=== PATIENT | female | born 1960 | race Caucasian/White ===

== ENCOUNTER 2024-08-10 18:51 | Emergency (ER) | payer MEDICARE ==
[~2024-08-10] VITALS: Ht 149.9 cm; Wt 77.1 kg
[2024-08-10 19:25] VITALS: BP_SYST 137; PULSE 101; RESP 18; TEMP 98.1; O2SAT 94
[2024-08-10 20:26] LABS: BASOPHILS # (AUTO) 0.1 K/uL (0.0-0.2); EOSINOPHILS # (AUTO) 1.4 K/uL (0.0-0.4); EOSINOPHILS % (AUTO) 9.1 % (0.0-4.0); HEMOGLOBIN 15.4 g/dL (12.0-16.0); LYMPHOCYTES # (AUTO) 3.6 K/uL (1.0-5.5); LYMPHOCYTES % (AUTO) 23.6 % (20.5-51.5); MEAN CORPUSCULAR HEMOGLOBIN 30 pg (27-31); MEAN CORPUSCULAR HGB CONC 34 % (32-36); MEAN CORPUSCULAR VOLUME 91 fL (79.0-98.0); MONOCYTES # (AUTO) 1.1 K/uL (0.0-1.0); MONOCYTES % (AUTO) 7.4 % (1.7-9.3); NEUTROPHILS % (AUTO) 58.9 % (40.0-70.0); PLATELET COUNT (AUTO) 275 K/uL (130-430); RED BLOOD CELL COUNT(AUTO) 5.08 MIL/uL (4.2-6.2); WHITE BLOOD COUNT (AUTO) 15.2 K/uL (4.8-10.8)
[2024-08-10 20:48] LABS: ANION GAP 11 (5-15); CALCIUM 9.5 mg/dL (8.4-11.0); CARBON DIOXIDE 26 mmol/L (23-29); CHLORIDE 101 mmol/L (98-107); CREATININE 1.64 mg/dL (0.55-1.30); GFR AFRICAN AMERICAN 40 mL/min (>90); GLUCOSE 213 mg/dL (74-106); SODIUM SERUM 138 mmol/L (136-145); THYROID STIMULATING HORMONE 1.21 uIu/mL (0.34-4.82); UREA NITROGEN, BLOOD 26 mg/dL (8-21)
[2024-08-10 20:49] LABS: GFR NON AFRICAN-AMERICAN 33 mL/min (>90)
[2024-08-11] MEDS: ASPIRIN 325 MG TABLET (ECOTRIN) PO ONE (00:01)
[2024-08-11] MEDS: ONDANSETRON HCL 4 MG/2 ML VIAL IVP ONE (00:02)
[2024-08-11] MEDS: INSULIN REGULAR, HUMAN 10 UNITS/0.1 ML, 3 ML VIAL IVP ONE ×2 (00:09→04:32)
[2024-08-11] MEDS ORDERED: INSULIN REGULAR, HUMAN 10 UNITS/0.1 ML, 3 ML VIAL ONE (04:14)
[2024-08-11 04:34] VITALS: BP_SYST 133; PULSE 93; RESP 19; TEMP 97.9; O2SAT 95
== END 2024-08-11 04:34 | disposition short-term general hospital (02) ==
LOC: SED 18:51
DX: I21.4 Non-ST elevation (NSTEMI) myocardial infarction (principal); R00.2 Palpitations; I12.9 Hypertensive chronic kidney disease with stage 1 through stage 4 chronic kidney disease, or unspecified chronic kidney disease; E11.22 Type 2 diabetes mellitus with diabetic chronic kidney disease; N18.9 Chronic kidney disease, unspecified; E11.65 Type 2 diabetes mellitus with hyperglycemia; D72.829 Elevated white blood cell count, unspecified
CPT/HCPCS: 99291; 80048; 84443; 85025; 84484; 36415; 93005; 71045; 82948; 84436; 96374; 96375; 96376; J2405; J1815